=== PATIENT | male | born 1990 | race Caucasian/White ===

== ENCOUNTER 2016-07-29 12:53 | Emergency (ER) ==
[2016-07-29 12:59] VITALS: BP 149/84
[2016-07-29 14:21] LABS: URINE CULTURE PL NEEDED? NO; URINE SOURCE CLEAN CATCH
[2016-07-29 14:34] LABS: BILIRUBIN URINE NEGATIVE (NEGATIVE); BLOOD URINE NEGATIVE (NEGATIVE); CLARITY CLEAR (CLEAR); COLOR YELLOW; GLUCOSE URINE NEGATIVE (NEGATIVE); LEUKOCYTES URINE NEGATIVE (NEGATIVE); NITRITE URINE NEGATIVE (NEGATIVE); PROTEIN URINE NEGATIVE (NEGATIVE); UROBILINOGEN URINE NORMAL
[2016-07-29 14:35] LABS: URINE EPITHELIAL CELLS <10 /HPF (<10)
--- NOTE | 2016-07-29 15:03 | PROVIDER DOCUMENTATION ---
HPI-General Adult - General Chief Complaint: Flank Pain Stated Complaint: FLANK PAIN Time Seen by Provider: 07/29/16 14:27 Source: patient Allergies/Adverse Reactions: Patient Allergies Allergy/AdvReac Type Severity Reaction Status Date / Time No Known Allergies Allergy Verified 07/29/16 12:59 Home Medications: Home Medication List Medication Instructions Recorded Confirmed Last Taken Type Naproxen 500 mg PO BID PRN PRN #20 tablet 07/29/16 Unknown Rx - History of Present Illness -Gen Adult Nature of Presenting Problems: 26 yo presents with pain to right side, worse with deep breath and sneezing. Denies kidney stone hx or blood in urine. Location of Pain/Injury: reports: other (right side rib area) Pain Radiation: reports: no radiation Quality of Pain: reports: aching Severity: reports: mild Onset/Duration: reports: 3 days ago Timing: reports: still present, intermittent Context/Activities at Onset: reports: none Modifying Factors: improves with: breathing (deep breath worsens), movement ( worsens), palpation (worsens), other Associated Symptoms: reports: denies symptoms Similar Symptoms Previously?: No Recently seen or treated by another doctor?: No Review of Systems - Adult - REVIEW OF SYSTEMS - ADULT Constitutional: reports: no symptoms reported Eyes: reports: no symptoms reported Ears, Nose, Mouth & Throat: reports: no symptoms reported Cardiovascular: reports: no symptoms reported Respiratory: reports: see HPI, other (right side pain) Gastrointestinal: reports: no symptoms reported Genitourinary: reports: no symptoms reported Musculoskeletal: reports: no symptoms reported Integumentary: reports: no symptoms reported Neurological: reports: no symptoms reported Psychiatric: reports: no symptoms reported Endocrine: reports: no symptoms reported Hematologic/Lymphatic: reports: no symptoms reported Allergic/Immunologic: reports: no symptoms reported All Other Systems: Reviewed and Negative Past History - Adult - PAST MEDICAL HISTORY-ADULT Review of Records: reports: Old Records Reviewed, Nursing Assessment Review, Medications Reviewed, Social history reviewed & non-contributory. Major Childhood Illnesses: reports: denies history Cardiovascular: reports: denies history Respiratory: reports: denies history Gastrointestinal: reports: denies history Obstetrical/Gynecological: reports: denies history Genitourinary: reports: denies history Musculoskeletal: reports: denies history Neurological: reports: denies history Endocrine/Immune: reports: denies history Other Conditions: reports: denies history - PRIOR SURGERIES/PROCEDURES Surgical/Procedure History: reports: none - IMMUNIZATION STATUS Childhood Immunizations: See Nurse Assessment Flu Vaccine: See Nurse Assessment - FAMILY HISTORY Family History: reviewed, not pertinent - SOCIAL HISTORY Smoking: denies, non-smoker Substance Use: none/never, denies Alcohol Use Frequency: never Living Situation: family Physical Exam-General - PHYSICAL EXAM-ADULT Initial Vital Signs Reviewed: Yes - CONSTITUTIONAL General Appearance: appears well, alert, no apparent distress - EYES Eyes: PERRL/EOMI, pink conjunctivae - HEAD, EARS, NOSE, MOUTH & THROAT HENMT: normocephalic/atraumatic, moist mucous membranes - RESPIRATORY Respiratory: lungs clear, normal breath sounds, no respiratory distress, other ( pain to right side rib area on palpation) - CARDIOVASCULAR Cardiovascular: normal peripheral pulses, regular rate, rhythm - GASTROINTESTINAL (ABDOMEN) Abdominal Exam: normal bowel sounds, non tender, soft - MUSCULOSKELETAL Back Exam: normal inspection, no CVA tenderness Extremity: non-tender, normal gait, normal inspection - SKIN Integumentary: normal color, normal turgor, warm/dry - NEUROLOGIC Neurologic: grossly normal - PSYCHIATRIC Psych/Mental Status: normal mood/affect, normal thought content, normal thought process, oriented x 3 Progress - PLAN OF CARE/RESULTS Progress/Plan/Lab Results: 1500-Discussed results/dx/tx/discharge and follow up instructions with patient; he verbalized understanding. Laboratory Tests 07/29/16 14:11 Urine Source CLEAN CATCH Urine Color YELLOW Urine Clarity CLEAR Urine pH 7.0 Ur Specific [place] 1.010 Urine Protein NEGATIVE Urine Ketones NEGATIVE Urine Blood NEGATIVE Urine Nitrite NEGATIVE Urine Bilirubin NEGATIVE Urine Urobilinogen NORMAL Urine Microscopic RBC Not Reportable Urine WBC NEGATIVE Ur Epithelial Cells <10 Urine Glucose NEGATIVE Orders Category Date Time Status RIBS UNILAT W/PA CHEST RIGHT [RAD] Stat Exams 07/29/16 14:[address] W/POSS RFLX CULT [URINALYSIS] Stat Lab 07/29/16 14:11 Completed Vital Signs - 24 hr 07/29/16 12:57 Temperature 97.6 F Pulse Rate 86 Respiratory 18 Rate Blood Pressure 149/84 O2 Sat by Pulse 100 Oximetry Departure - Departure Time of Disposition Order: 15:03 DIAGNOSIS: Rib pain on right side Intercostal muscle strain Qualifiers: Encounter type: initial encounter Qualified Code(s): S29.011A - Strain of muscle and tendon of front wall of thorax, initial encounter Disposition: HOME 01 Certified Medical Emergency: Emergent Condition: Good Additional Instructions: Follow up with primary care doctor. Apply ice to sore area. Take medications as prescribed. ED Follow Up Instructions: You have been treated by a care provider in the Emergency Department. These instructions are being provided to you so you can have an understanding of how to care for yourself upon discharge. Upon discharge from the Emergency Department, you are responsible for making arrangements for follow-up care by a physician of your choice. Take all prescribed medications as directed. Return to the Emergency Department immediately for any new or worsening symptoms. You may call the Physician Referral phone number at [phone] to obtain a list of Physicians who are taking new patients. Prescriptions: Naproxen 500 mg PO BID PRN PRN #20 tablet PRN Reason: Pain Referrals: Stewart Snyder MD [STAFF PHYSICIAN] - Forms: Return to School/Parent Work Instructions: Naproxen delayed-release tablets, Rib Contusion Attestation - Physician/ QASIM Attestation Patient care was provided by Advanced Practice Provider:: Yes Advanced Practice Provider:: Eleni Diaz Advanced Practice Provider documentation review:: The Mid-level provider documentation, treatment plan and medical decision making was reviewed by the physician who agrees with all treatment and medical decision making by the P.
--- NOTE | 2016-07-29 15:27 | Diag Imaging Result Document ---
PROCEDURE NAME: RIBS UNILAT W/PA CHEST RIGHT - 07/29/2016 PA CHEST AND RIGHT RIB SERIES, 3 VIEWS: FINDINGS: There is no evidence of pneumothorax or pleural fluid collection. There are no previous studies. The ribs appear to be intact. IMPRESSION: No evidence of acute disease.
== END 2016-07-29 15:20 | disposition home or self-care (01) ==
LOC: P.ED 12:53
DX: S29.011A Strain of muscle and tendon of front wall of thorax, initial encounter (principal); R07.81 Pleurodynia; R10.9 Unspecified abdominal pain
CPT/HCPCS: 71101; 81001; 99283